=== PATIENT | male | born 1950 | race Two or more races ===

== ENCOUNTER → 2019-04-25 14:00 | Outpatient (CLI) | payer OTHER | END | disposition home or self-care (01) | LOC: LAB 14:00 | DX: C61 Malignant neoplasm of prostate (principal); R91.1 Solitary pulmonary nodule ==

== ENCOUNTER → 2019-05-08 | Outpatient (CLI) | payer OTHER | END | disposition home or self-care (01) | LOC: NUCLEAR 07:00 | DX: I65.21 Occlusion and stenosis of right carotid artery (principal); I25.10 Atherosclerotic heart disease of native coronary artery without angina pectoris ==

== ENCOUNTER 2019-06-11 08:52 | Outpatient (CLI) | payer OTHER | END 2019-06-11 09:00 | disposition home or self-care (01) | LOC: LAB 08:52 | DX: R31.1 Benign essential microscopic hematuria (principal) ==

== ENCOUNTER 2019-06-12 09:25 | Outpatient (CLI) | payer OTHER | END 2019-06-12 15:00 | disposition home or self-care (01) | LOC: LAB 09:25 | DX: N20.0 Calculus of kidney (principal) ==

== ENCOUNTER 2019-06-13 07:45 | Outpatient (CLI) | payer OTHER | END 2019-06-13 17:00 | disposition home or self-care (01) | LOC: TOM 07:45 | DX: C61 Malignant neoplasm of prostate (principal); R91.1 Solitary pulmonary nodule | CPT/HCPCS: 71270; 74177; Q9965 ==

== ENCOUNTER → 2019-06-13 17:19 | Outpatient (CLI) | payer OTHER | END | disposition home or self-care (01) | LOC: LAB 17:19 | DX: R97.20 Elevated prostate specific antigen [PSA] (principal) ==

== ENCOUNTER → 2020-12-10 | Outpatient (CLI) | payer OTHER | END | disposition home or self-care (01) | LOC: SONOGRAMA 09:28 | PROVIDERS: ATTEND Urology | DX: C61 Malignant neoplasm of prostate (principal); R97.20 Elevated prostate specific antigen [PSA]; D29.1 Benign neoplasm of prostate ==

== ENCOUNTER 2022-04-02 12:17 | Emergency (ER) | payer OTHER ==
[~2022-04-02] VITALS: Ht 170.2 cm; Wt 69.9 kg
[2022-04-02] MEDS ORDERED: CLONAZEPAM0.125 MG PO (12:31)
[2022-04-02] MEDS ORDERED: JANUMET 50-5001 EACH PO (12:32)
[2022-04-02] MEDS ORDERED: [UNRECOGNIZED DRUG - OTHER] IV (12:32)
[2022-04-02] MEDS ORDERED: GLIPIZIDE XL2.5 MG PO (12:32)
== END 2022-04-02 20:02 | disposition home or self-care (01) ==
LOC: ER 12:17
DX: K62.5 Hemorrhage of anus and rectum (principal); Z86.73 Personal history of transient ischemic attack (TIA), and cerebral infarction without residual deficits; E11.9 Type 2 diabetes mellitus without complications; Z85.46 Personal history of malignant neoplasm of prostate; Z79.84 Long term (current) use of oral hypoglycemic drugs

== ENCOUNTER 2022-04-06 10:53 | Emergency (ER) | payer OTHER ==
[~2022-04-06] VITALS: Ht 188 cm; Wt 67.1 kg
[~2022-04-06 10:53] MED LIST: CLONAZEPAM0.125 MG PO; GLIPIZIDE XL2.5 MG PO; JANUMET 50-5001 EACH PO; [UNRECOGNIZED DRUG - OTHER] IV
== END 2022-04-06 14:27 | disposition home or self-care (01) ==
LOC: ER 10:53
DX: K62.5 Hemorrhage of anus and rectum (principal)

== ENCOUNTER 2022-04-12 14:13 | Emergency (ER) | payer OTHER ==
[~2022-04-12] VITALS: Ht 188 cm; Wt 67.1 kg
[2022-04-12] MEDS ORDERED: TRELEGY ELLIPT1 EACH IH (14:39)
[2022-04-12] MEDS ORDERED: CLONAZEPAM1 MG PO (14:40)
[2022-04-12] MEDS ORDERED: BICALUTAMIDE50 MG PO (14:40)
[2022-04-12] MEDS ORDERED: EZETIMIBE10 MG PO (14:40)
[2022-04-12] MEDS ORDERED: DICY20TA PO (17:36)
[2022-04-12] MEDS ORDERED: LEVSIN0.125 MG PO (17:39)
[2022-04-12] MEDS ORDERED: ACETAMINOPHEN650 M2 PO (17:39)
== END 2022-04-12 17:56 | disposition home or self-care (01) ==
LOC: ER 14:13
DX: K62.5 Hemorrhage of anus and rectum (principal); B20 Human immunodeficiency virus [HIV] disease; Z20.822 Contact with and (suspected) exposure to COVID-19; E11.9 Type 2 diabetes mellitus without complications; Z79.899 Other long term (current) drug therapy; I10 Essential (primary) hypertension; K62.9 Disease of anus and rectum, unspecified

== ENCOUNTER 2022-04-30 15:17 | Emergency (ER) | payer OTHER ==
[~2022-04-30] VITALS: Ht 182.9 cm; Wt 66.2 kg
[~2022-04-30 15:17] MED LIST changes: +ACETAMINOPHEN650 M2 PO; +BICALUTAMIDE50 MG PO; +CLONAZEPAM1 MG PO; +DICY20TA PO; +EZETIMIBE10 MG PO; +LEVSIN0.125 MG PO; +TRELEGY ELLIPT1 EACH IH
== END 2022-04-30 21:45 | disposition home or self-care (01) ==
LOC: ER 15:17
DX: C61 Malignant neoplasm of prostate (principal); K62.5 Hemorrhage of anus and rectum; I10 Essential (primary) hypertension; Z20.822 Contact with and (suspected) exposure to COVID-19; C18.9 Malignant neoplasm of colon, unspecified; Z92.3 Personal history of irradiation